=== PATIENT | male | born 1970 | race Caucasian/White ===

== ENCOUNTER 2018-07-23 10:02 | Emergency (ER) | payer SELFPAY ==
[2018-07-23 10:10] VITALS: BP 142/96; PULSE 70; RESP 16; TEMP 37.7; O2SAT 95
--- NOTE | 2018-07-23 10:21 | ED.GENADUL_ITS ---
Discharge Plan Disposition Patient Disposition: HOME Condition: Improving Discharge Details Chief Complaint: Sorethroat Clinical Impression: Acute pharyngitis, Acute torticollis Primary Care Provider: Veronica Harris ED Provider: Quinn Preston Home Meds and New Rx's Prescriptions: New methocarbamol 500 mg tablet 500 - 1,000 mg PO Q6H PRN (Reason: Back pain or spasm) Qty: 14 RF: 0 amoxicillin-pot clavulanate 875-125 mg tablet 1 tab PO BID 10 Days Qty: 20 RF: 0 Continued levalbuterol tartrate [Xopenex HFA] 15 GM HFA aerosol inhaler Inhalation QID PRN RF: 0 Benefiber Clear SF (dextrin) 1 EACH powder in packet 1 ea PO DAILY RF: 0 dicyclomine 20 MG tablet 20 mg PO 1-2 TABS BID PRN RF: 0 promethazine 25 MG tablet 25 mg PO QID RF: 0 sertraline 25 MG tablet 25 mg PO DAILY RF: 0 Discharge Instructions Instructions: Spasmodic Torticollis (ED) Additional Instructions: Please take antibiotic as prescribed. As discussed I recommend you take an [id number] probiotic or local live culture yogurt once daily in the middle of the day, between the doses of antibiotics. May use methocarbamol, as prescribed for muscular tenderness. May use warm, moist heat to area to reduce discomfort. May apply gentle stretching or massage as well. Return if you develop shaking chills, worsening discomfort, high fever, or any other acute concerns. Please follow-up with Leah Vega in clinic if not improving in 3-5 days time Medical Decision Making 47-year-old male presents on referral from primary care clinic with 4-5 days of worsening left-sided throat discomfort. He is afebrile, well-appearing, with tender left anterior submandibular lymph nodes and left anterior neck musculature. Differential diagnosis includes deep space abscess, peritonsillar abscess, pharyngitis, muscular torticollis. Patient IV access established, given steroids, anti-inflammatory, referred for laboratory testing and CT images that are negative for acute inflammatory process or other findings. It will treat him for pharyngitis. Will add methocarbamol for mild torticollis. Discussed with him home management as well as follow-up and return precautions. Lab Data Lab results reviewed: Yes I reviewed the patient's lab results. Laboratory Results - last 24 hr 07/23/18 07/23/18 10:50 10:50 WBC 6.98 RBC 5.73 Hgb 16.7 Hct 49.1 MCV 85.7 MCH 29.1 MCHC 34.0 RDW 13.7 Plt Count 199 MPV 11.6 H Immature Gran % 0.3 Neutrophils % 59.3 Lymphocytes % 30.1 Monocytes % 8.0 Eosinophils % 2.3 Basophils % 0.0 Absolute Neutrophils 4.14 Absolute Lymphocytes 2.10 Absolute Monocytes 0.56 Absolute Eosinophils 0.16 Absolute Basophils 0.00 Sodium 138 Potassium 4.1 Chloride 101 Carbon Dioxide 26.5 Anion Gap 10.5 BUN 13 Creatinine 0.97 Estimated GFR/1.73 m2 >= 60.00 Glucose 90 Calcium 9.9 AST 11 L Albumin 4.8 HPI General Mode of arrival: ambulatory . Date/Time Provider Initiated Documentation: 07/23/18 10:04 . Limitations to Documentation: no limitations . Information obtained by: patient . History of Present Illness 47 year old M presents to the emergency department with the chief complaint of Sore throat times 4-5 days, left, worse today, described as moderate, Quality is described as aching, and is localized to the mouth and left. Patient neck. Patient started experiencing this day(s) and it has been constant. No relieving factors improve symptom(s), Eating worsens symptoms . Patient notes no other symptoms.. Patient did receive the following treatments prior to arrival, none Related Data Home Medications Medication Instructions Recorded Confirmed sertraline 25 mg PO DAILY 01/11/13 07/23/18 Benefiber Clear SF (dextrin) 1 ea PO DAILY 08/13/14 07/23/18 dicyclomine 20 mg PO 1-2 TABS BID PRN tab-cap 08/13/14 07/23/18 levalbuterol tartrate [Xopenex HFA] 0 inh INHALATION QID PRN inhaler 08/13/14 07/23/18 promethazine 25 mg PO QID tab-cap 09/24/14 07/23/18 amoxicillin-pot clavulanate 1 tab PO BID 10 Days #20 tab 07/23/18 methocarbamol 500 - 1,000 mg PO Q6H PRN #14 tab 07/23/18 Previous Rx's Medication Instructions Recorded amoxicillin-pot clavulanate 1 tab PO BID 10 Days #20 tab 07/23/18 methocarbamol 500 - 1,000 mg PO Q6H PRN #14 tab 07/23/18 Allergies Allergy/AdvReac Type Severity Reaction Status Date / Time aspirin Allergy told when Unverified 07/23/18 10:12 he was a child sulfasalazine AdvReac Intermediate GI UPSET Unverified 07/23/18 10:12 General Stated Complaint: Sorethroat CHELSIE: 3 Review of Systems Review of Systems 6 systems reviewed and otherwise neg PFSH Social History Smoking/Tobacco Use Status: Former Tobacco Use Exam Narrative Exam Narrative: GEN: awake, alert, oriented 3. Pleasant, well groomed, interactive. HEAD: Normocephalic, atraumatic ENT: Mucous membranes moist, oropharynx with erythematous tonsillar pillars, no swelling, uvula midline, External ear exam unremarkable EYES: PERRL, EOMI NECK: Full ROM, tender left anterior submandibular lymphadenopathy and tenderness with mild spasm of the left neck anterior musculature CHEST/RESP: Nontender, clear to auscultation bilateral, no wheeze/rhonchi/rales CARDIOVASCULAR: RRR, no murmur, rub abhijit. 2+ Rad pulse bilateral ABDOMEN: Soft, nontender, no mass. +Bowel sounds EXT: Full ROM, no edema, no rash Neuro: Grossly normal neurologic exam, conversant, interactive. Psych: Speech fluent, thoughts congruent, affect normal Course Vital Signs Temperature 37.7 C H 07/23/18 10:10 Pulse 70 07/23/18 10:10 Respiratory Rate 16 07/23/18 10:10 Blood Pressure 142/96 H 07/23/18 10:10 Pulse Oximetry 95 07/23/18 10:10 Temperature 37.7 C H 07/23/18 10:10 Temperature Source Skin 07/23/18 10:10 Pulse 70 07/23/18 10:10 Respiratory Rate 16 07/23/18 10:10 Respiratory Effort Non-Labored 07/23/18 10:10 Blood Pressure 142/96 H 07/23/18 10:10 Blood Pressure Position Sitting 07/23/18 10:10 Pulse Oximetry 95 07/23/18 10:10 Oxygen Delivery Method Room Air 07/23/18 10:10 Oxygen Flow Rate 0 07/23/18 10:10 Pain Level 5 07/23/18 10:10
[2018-07-23] MEDS: Lactated Ringers 1,000 ML 1000 ML IV (10:50)
[2018-07-23] MEDS: Dexamethasone 10 MG/ML VIAL IVP (10:50)
[2018-07-23] MEDS: Ketorolac 15 MG/ML VIAL IVP (10:55)
[2018-07-23 11:06] LABS: Abs Immature Grans 0.02 k/cumm (0.0-0.09); Absolute Eosinophil Count 0.16 k/cumm (0.0-0.7); Absolute Monocyte Count 0.56 k/cumm (0.11-0.7); Absolute Neutrophil Count 4.14 k/cumm (1.2-6.7); Eosinophils % 2.3; HCT 49.1 % (40.0-50.0); HGB 16.7 g/dL (13.5-17.5); Immature Grans % 0.3; Lymphocytes % 30.1; Mean Corpuscular Hemoglobin 29.1 pg (27.0-33.0); Mean Corpuscular Volume 85.7 fL (80-95); Mean Platelet Volume 11.6 fL (8.0-11.0); Neutrophils % 59.3; Platelet Count 199 x1000/uL (130-400); RBC 5.73 m/cumm (4.50-6.00); RBC Distribution Width 13.7 % (11.8-14.1); White Blood Cell Count 6.98 k/cumm (4.4-10.8)
[2018-07-23 11:25] LABS: AST 11 U/L (15-37); Albumin 4.8 g/dL (3.4-5.0); Anion Gap 10.5 mmol/L (3-11); BUN 13 mg/dL (7-18); CO2 26.5 mmol/L (21.0-32.0); CREATININE 0.97 mg/dL (0.70-1.30); Calcium 9.9 mg/dL (8.5-10.1); Chloride 101 mmol/L (98-107); Glucose 90 mg/dL (70-100); Potassium 4.1 mmol/L (3.5-5.1); Sodium 138 mmol/L (136-145)
[2018-07-23 11:42] LABS: ALT 32 U/L (12-78); Alkaline Phosphatase 85 U/L (46-116); Bilirubin, Total 0.4 mg/dL (0.2-1.0); Total Protein 9.2 g/dL (6.4-8.2)
--- NOTE | 2018-07-23 11:54 | DI.CT_ITS ---
SYMPTOMS/DIAGNOSIS: LEFT SUBMANDIBULAR/RETROPHARYNGEAL SWELLING/PAIN CT SCAN OF THE NECK: CT scan of the neck was performed following the uneventful administration of intravenous contrast material. There is mild mucosal thickening seen in the ethmoid air cells. The remaining visualized paranasal sinuses are clear. No fluid levels are seen. The parotid and submandibular glands are unremarkable. The nasopharynx, oropharynx, hypopharynx and larynx are unremarkable. The retropharyngeal soft tissues are unremarkable. The thyroid gland is unremarkable. The lung apices are clear. There is no significant cervical adenopathy. There is a unilocular cystic lesion seen adjacent to the right posterior molar in the right mandible; this may reflect an odontogenic cyst. Other benign osseous lesions should also be considered. No periosteal reaction or soft tissue mass is associated with this. The bones are intact and normally mineralized. There are mild degenerative changes seen in the cervical spine at C5-C6. IMPRESSION: No acute abnormality. The findings were discussed with the Emergency Department on the date of the examination.
[2018-07-23] MEDS: Omnipaque 350 MG/ML 100 ML BTL IJ (12:48)
[2018-07-23 13:39] VITALS: BP 142/96; PULSE 70; RESP 16; TEMP 37.7; O2SAT 95
== END 2018-07-23 13:38 | disposition home or self-care (01) ==
PROVIDERS: Emergency Provider Emergency Medicine; PCP Family Medicine
DX: J02.9 Acute pharyngitis, unspecified (principal); M43.6 Torticollis
CPT/HCPCS: 36415; 70491; 80053; 87880; 96361; 96375; 99285; 85025; 87081; 99283; J1100; J1885; J3490

== ENCOUNTER 2020-02-16 13:35 | Outpatient (REF) | payer SELFPAY ==
[2020-02-16 18:37] LABS: HCT 43.5 % (40.0-50.0); HGB 14.2 g/dL (13.5-17.5); MCH 28.7 pg (27.0-33.0); MCHC 32.6 % (32.0-36.0); MCV 88.1 fL (80-95); MPV 12.6 fL (8.0-11.0); Platelet Count 183 10^3/uL (130-400); RBC 4.94 10^6/uL (4.36-5.78); RDW 12.8 % (11.8-14.1); RDW-SD 41.1 fL; WBC 6.43 10^3/uL (4.4-10.8)
[2020-02-16 18:55] LABS: ALT 29 U/L (16-63); AST 14 U/L (15-37); Albumin 4.2 g/dL (3.4-5.0); Alkaline Phosphatase 77 U/L (46-116); Anion Gap 7.6 mmol/L (3-11); BUN 12 mg/dL (7-18); Bilirubin, Total 0.2 mg/dL (0.2-1.0); CO2 28.4 mmol/L (21.0-32.0); CREATININE 0.88 mg/dL (0.70-1.30); Calcium 9.2 mg/dL (8.5-10.1); Chloride 103 mmol/L (98-107); Glucose 94 mg/dL (74-106); Potassium 4.1 mmol/L (3.5-5.1); Sodium 139 mmol/L (136-145); TSH (W/Ref FT4) 1.98 uIU/mL (0.36-3.74); Total Protein 7.4 g/dL (6.4-8.2)
[2020-02-18 11:17] LABS: IgA 200 mg/dL (85-499)
[2020-02-18 19:27] LABS: Tissue Transglutaminase Ab IgA <1.2 U/mL; Tissue Transglutaminase Ab IgG 1.4 U/mL
[2020-02-19 12:11] LABS: Metanephrine, Free <0.20 nmol/L (<0.50); Normetanephrine, Free 0.57 nmol/L (<0.90)
== END 2020-02-16 13:55 ==
LOC: NCHCN 13:35
PROVIDERS: PCP Family Medicine; Visit Provider Family Medicine
DX: R10.9 Unspecified abdominal pain (principal); R42 Dizziness and giddiness; R23.2 Flushing
CPT/HCPCS: 80053; 82784; 85027; 83516; 83835; 84443

== ENCOUNTER 2020-06-22 15:11 | Emergency (ER) | payer SELFPAY ==
[2020-06-22] VITALS (32 sets, daily range): BP systolic 133–161; BP diastolic 70–102; PULSE 68–91; RESP 10–33; TEMP 36.3–36.6; O2SAT 95–98
--- NOTE | 2020-06-22 15:12 | ED.GENADUL_ITS ---
Discharge Plan Disposition Patient Disposition: HOME Condition: Improving Discharge Details Clinical Impression: Gastroenteritis Primary Care Provider: Veronica Harris ED Provider: Isabel Castillo Home Meds and New Rx's Prescriptions: Continued levalbuterol tartrate [Xopenex HFA] 15 GM HFA aerosol inhaler 0 inh Inhalation QID PRN RF: 0 dicyclomine 20 MG tablet 20 mg PO 1-2 TABS BID PRN RF: 0 promethazine 25 MG tablet 25 mg PO QID RF: 0 sertraline 25 MG tablet 25 mg PO DAILY RF: 0 Discharge Instructions Instructions: Gastroenteritis (ED) Additional Instructions: Your lab work and CAT scan was reassuring and did not reveal any acute cause for your vomiting, diarrhea and abdominal pain at this time. Alternate tylenol and motrin as needed and directed for pain. Continue your Phenergan and dicyclomine as needed and directed. Follow-up with your primary care doctor in 1 week. Return to the emergency department with any worsening or new concerning symptoms. Discharge Data Discharge Date/Time-TO BE ENTERED AT DEPARTURE: 06/22/20 19:55 Discharge Physician: Isabel Castillo Medical Decision Making 1520 -- 49-year-old male with a history of IBS presents for vomiting, diarrhea and abdominal pain for the past week. Vitals within normal limits. He appears slightly uncomfortable. His abdomen is soft and tender diffusely but worse in the lower quadrants. No rebound or guarding. Differential diagnosis includes gastroenteritis, bowel obstruction, cholecystitis, appendicitis, colitis. Will place an IV, bolus IV fluids, screening labs, CT abdomen pelvis and give a dose of IV Tylenol, Toradol and Zofran and reassess. 1615 --labs reviewed and unremarkable. Normal white blood cell count. Normal lipase. 1630 --patient noted to be diaphoretic and feels hot with sweats and some dizziness. He denies chest pain, shortness of breath or worsening pain or nausea. EKG obtained and notes rate of 71, sinus with no STEMI. Troponin negative. No significant change from previous EKG 2006. 1800 --patient reassessed and denies any nausea or pain. Will repeat EKG as he was sweaty and lead stickers were not staying in place. CT notes thickening of urinary bladder but no other acute findings. Patient given 2 full liters and still unable to give a urine sample. Suspect dehydration. He appears much more improved. Urinalysis negative. Patient reassessed any admits to continued improvement in symptoms. 1930 -- Repeat EKG unchanged. Patient feels good to go home. He is advised to continue with Phenergan and dicyclomine. Advised to follow up with the primary care doctor for re-evaluation. Usual and customary return precautions given prior to discharge. Medical Records Medical records reviewed: Yes I reviewed the patient's medical records. Imaging Data Radiologic Study: Radiologist's impression: CT Abdomen And Pelvis With Contrast Exam date and time: 06/22/2020 5:07 PM Age: 49 years old Clinical indication: Other: Lower abd pain, vomiting, diarrhea TECHNIQUE: Imaging protocol: Computed tomography of the abdomen and pelvis with intravenous contrast. Radiation optimization: All CT scans at this facility use at least one of these dose optimization techniques: automated exposure control; mA and/or kV adjustment per patient size (includes targeted exams where dose is matched to clinical indication); or iterative reconstruction. Contrast material: OMNIPAQUE 350; Contrast volume: 100 ml; Contrast route: INTRAVENOUS (IV); Other contrast: lower abd pain, vomiting, diarrhea; COMPARISON: No relevant prior studies available. FINDINGS: Lungs: The visualized lung bases are clear. Liver: Hepatic dome hypodensity measuring 1.1 cm likely represents a hemangioma. Additional smaller segment 8 hypodensity may represent a 0.6 cm hemangioma versus cyst. Gallbladder and bile ducts: Normal. No calcified stones. No ductal dilation. Pancreas: Normal. No ductal dilation. Spleen: Normal. No splenomegaly. Adrenal glands: Normal. No mass. Kidneys and ureters: Normal. No hydronephrosis. Stomach and bowel: A few scattered sigmoid diverticula but no evidence for acute diverticulitis. No bowel obstruction. No mucosal enhancement. No small or large bowel wall thickening. Appendix: Normal appendix. No evidence for appendicitis. Intraperitoneal space: Unremarkable. No free air. No significant fluid collection. Vasculature: Unremarkable. No abdominal aortic aneurysm. Lymph nodes: Unremarkable. No enlarged lymph nodes. Urinary bladder: Mild thickening of the urinary bladder wall. Reproductive: Unremarkable as visualized. Bones/joints: Unremarkable. No acute fracture. Soft tissues: Unremarkable. IMPRESSION: 1. Mild thickening of the urinary bladder wall. Correlate with urinalysis. 2. Benign hypodensities at the hepatic dome representing a small hemangioma with a 2nd smaller hemangioma versus cyst. 3. No other acute intra-abdominal or pelvic finding. Lab Data Lab results reviewed: Yes I reviewed the patient's lab results. Labs: Laboratory Tests Range/Units 06/22/20 06/22/20 06/22/20 15:32 15:32 15:32 WBC (4.4-10.8) 10^3/uL 9.83 RBC (4.36-5.78) 10^6/uL 5.90 H Hgb (13.5-17.5) g/dL 16.9 Hct (40.0-50.0) % 49.7 MCV (80-95) fL 84.2 MCH (27.0-33.0) pg 28.6 MCHC (32.0-36.0) % 34.0 RDW (11.8-14.1) % 12.3 Plt Count (130-400) 10^3/uL 241 MPV (8.0-11.0) fL 11.5 H Immature Gran % 0.4 Neutrophils % 60.3 Lymphocytes % 26.7 Monocytes % 9.9 Eosinophils % 2.5 Basophils % 0.2 Nucleated RBC % % 0 Absolute Neutrophils (1.2-6.7) 10^3/uL 5.93 Absolute Lymphocytes (1.2-3.4) 10^3/uL 2.62 Absolute Monocytes (0.1-0.8) 10^3/uL 0.97 H Absolute Eosinophils (0.0-0.7) 10^3/uL 0.25 Absolute Basophils (0.0-0.2) 10^3/uL 0.02 Sodium (136-145) mmol/L 134 L Potassium (3.5-5.1) mmol/L 3.8 Chloride (98-107) mmol/L 100 Carbon Dioxide (21.0-32.0) mmol/L 25.5 Anion Gap (3-11) mmol/L 8.5 BUN (7-18) mg/dL 20 H Creatinine (0.70-1.30) mg/dL 0.97 Estimated GFR/1.73 m2 (mL/min/1.73m2) >= 60.00 Glucose (74-106) mg/dL 98 Calcium (8.5-10.1) mg/dL 9.3 Total Bilirubin (0.2-1.0) mg/dL 0.6 AST (15-37) U/L 13 L ALT (16-63) U/L 23 Alkaline Phosphatase (46-116) U/L 84 Troponin I (<0.06) ng/mL < 0.05 Total Protein (6.4-8.2) g/dL 8.2 Albumin (3.4-5.0) g/dL 4.6 Lipase (73-393) U/L 110 Urine Color (Yellow) Urine Clarity (Clear) Urine pH (5-8) Ur Specific Stringer (1.005-1.025) Urine Protein (Negative) mg/dL Urine Ketones (Negative) mg/dL Urine Blood (Negative) Urine Nitrite (Negative) Urine Bilirubin (Negative) Urine Urobilinogen (Up TO 0.2) EU/dL Ur Leukocyte Esterase (Negative) Urine Glucose (Negative) mg/dL Range/Units 06/22/20 18:45 WBC (4.4-10.8) 10^3/uL RBC (4.36-5.78) 10^6/uL Hgb (13.5-17.5) g/dL Hct (40.0-50.0) % MCV (80-95) fL MCH (27.0-33.0) pg MCHC (32.0-36.0) % RDW (11.8-14.1) % Plt Count (130-400) 10^3/uL MPV (8.0-11.0) fL Immature Gran % Neutrophils % Lymphocytes % Monocytes % Eosinophils % Basophils % Nucleated RBC % % Absolute Neutrophils (1.2-6.7) 10^3/uL Absolute Lymphocytes (1.2-3.4) 10^3/uL Absolute Monocytes (0.1-0.8) 10^3/uL Absolute Eosinophils (0.0-0.7) 10^3/uL Absolute Basophils (0.0-0.2) 10^3/uL Sodium (136-145) mmol/L Potassium (3.5-5.1) mmol/L Chloride (98-107) mmol/L Carbon Dioxide (21.0-32.0) mmol/L Anion Gap (3-11) mmol/L BUN (7-18) mg/dL Creatinine (0.70-1.30) mg/dL Estimated GFR/1.73 m2 (mL/min/1.73m2) Glucose (74-106) mg/dL Calcium (8.5-10.1) mg/dL Total Bilirubin (0.2-1.0) mg/dL AST (15-37) U/L ALT (16-63) U/L Alkaline Phosphatase (46-116) U/L Troponin I (<0.06) ng/mL Total Protein (6.4-8.2) g/dL Albumin (3.4-5.0) g/dL Lipase (73-393) U/L Urine Color (Yellow) Yellow Urine Clarity (Clear) Clear Urine pH (5-8) 6.5 Ur Specific Stringer (1.005-1.025) 1.015 Urine Protein (Negative) mg/dL Negative Urine Ketones (Negative) mg/dL Trace H Urine Blood (Negative) Negative Urine Nitrite (Negative) Negative Urine Bilirubin (Negative) Negative Urine Urobilinogen (Up TO 0.2) EU/dL 1.0 H Ur Leukocyte Esterase (Negative) Negative Urine Glucose (Negative) mg/dL Negative ECG Data Attestation: I personally reviewed and interpreted this ECG (s) as follows: Interpretation: #1 -- Rate of 71, sinus, no acute ST elevation or depression. Suspect LVH and benign early repole in anterior lateral leads which is seen in previous EKGs. #2 -- Rate of 71, sinus, no acute ST elevation or depression. No acute change reviewed EKG. AK 206. QRS 85. QTc 470. HPI General Mode of arrival: ambulatory . Date/Time Provider Initiated Documentation: 06/22/20 15:11 . Limitations to Documentation: no limitations . Information obtained by: patient . HPI Narrative: Patient is a 49-year-old male with a history of IBS who presents to the ED with a complaint nausea, vomiting, diarrhea and abdominal pain for the past week. Patient states he has vomited 4- 5 times daily which is mainly been white foam and has had approximately 4-5 episodes of watery brown diarrhea daily for the past week. He states his abdominal pain is constant, sharp with intermittent stabbing pain. He states the pain is occasionally worse with food but otherwise denies any other exacerbating factors. He states he occasionally takes dicyclomine for his IBS and is taken occasionally with temporary relief and then the pain returns. He also admits to significant amount of flatulence which does not significantly reduce his pain. Patient was seen at [facility] today for the symptoms and was referred here for further evaluation due to his severe abdominal pain. Patient has also had decreased appetite of the past week. He denies fever, chest pain, shortness of breath, urinary symptoms, recent travel, recent known sick contacts, recent known exposure to coronavirus or recent antibiotics. Related Data Home Medications Medication Instructions Recorded Confirmed sertraline 25 mg PO DAILY 01/11/13 06/22/20 dicyclomine 20 mg PO 1-2 TABS BID PRN tab-cap 08/13/14 06/22/20 levalbuterol tartrate [Xopenex HFA] 0 inh INHALATION QID PRN inhaler 08/13/14 06/22/20 promethazine 25 mg PO QID tab-cap 09/24/14 06/22/20 Allergies Allergy/AdvReac Type Severity Reaction Status Date / Time aspirin Allergy told when Unverified 06/22/20 15:20 he was a child sulfasalazine AdvReac Intermediate GI UPSET Unverified 06/22/20 15:20 General CHELSIE: 3 Review of Systems All systems reviewed & are unremarkable except as noted in HPI and below Constitutional Constitutional: Reports as per HPI, Denies chills and Denies fever(s) Eyes Eyes: Denies blurry vision ENT Ears, Nose, Mouth, and Throat: Denies dizziness, Denies sore throat and Denies throat swelling Cardiovascular Cardiovascular: Denies chest pain and Denies dyspnea Respiratory Respiratory: Denies cough and Denies dyspnea Gastrointestinal Gastrointestinal: Reports abdominal pain, Reports diarrhea and Reports vomiting Genitourinary Genitourinary: Denies hematuria and Denies dysuria Musculoskeletal Musculoskeletal: Denies back pain and Denies numbness Integumentary/Breasts Skin/Breast: Denies lesions and Denies rash Neurologic Neurologic: Denies dizziness, Denies localized weakness and Denies numbness Allergic/Immunologic Allergic/Immunologic: Denies throat swelling [facility] Medical History (Updated 06/22/20 @ 19:24 by Isabel Castillo DO) Hemorrhoids History of IBS Surgical History (Updated 06/22/20 @ 16:48 by Isabel Castillo DO) No significant past surgical history Social History Smoking/Tobacco Use Status: Former Tobacco Use Smoking risk assessment performed?: Yes Alcohol Intake: former Drug use: Occasionally Substance use type: marijuana Do you feel safe at home: Yes Do you feel safe in your relationship?: Yes Exam Const General: cooperative and no acute distress Orientation: alert, awake and oriented x3 HENMT Head: normal to inspection Face and sinus: normal facial exam Eyes General: appearance normal, both eyes and all related structures EOM: EOM intact bilaterally Neck Neck: normal visual inspection and No submandibular swelling Lymphatic: no lymphadenopathy noted Chest Chest: normal inspection of the chest and no tenderness Resp Effort & Inspection: normal respiratory effort and able to speak in complete sentences Auscultation: clear to auscultation bilaterally Cardio Rate: regular rate Rhythm: regular rhythm GI Inspection: normal to inspection Palpation: soft, not firm, not rigid and tender (Diffuse, worse in lower abdomen) Auscultation: hyperactive bowel sounds Skin General skin exam: no rashes or lesions noted Neuro General: patient alert, patient awake and patient oriented x3 Cognition: normal cognition Speech: speech normal Motor: muscle tone normal throughout Sensory Exam: no sensory deficits noted Extrem General: normal to inspection, full ROM, capillary refill normal, no calf tenderness bilaterally and no edema Psych Appearance: grossly normal Mental Status: mental status grossly normal Speech and Movement: speech and movement normal Affect: normal affect
[2020-06-22 15:38] LABS: Abs Immature Grans 0.04 10^3/uL (0.0-0.06); Absolute Basophil Count 0.02 10^3/uL (0.0-0.2); Absolute Eosinophil Count 0.25 10^3/uL (0.0-0.7); Absolute Lymphocyte Count 2.62 10^3/uL (1.2-3.4); Absolute Monocyte Count 0.97 10^3/uL (0.1-0.8); Absolute Neutrophil Count 5.93 10^3/uL (1.2-6.7); Basophils % 0.2; Eosinophils % 2.5; HCT 49.7 % (40.0-50.0); HGB 16.9 g/dL (13.5-17.5); Immature Grans % 0.4; Lymphocytes % 26.7; MCH 28.6 pg (27.0-33.0); MCV 84.2 fL (80-95); MPV 11.5 fL (8.0-11.0); Monocytes % 9.9; Neutrophils % 60.3; Nucleated RBC 0 %; Platelet Count 241 10^3/uL (130-400); RDW 12.3 % (11.8-14.1); RDW-SD 37.8 fL; WBC 9.83 10^3/uL (4.4-10.8)
--- NOTE | 2020-06-22 15:45 | DI.CT_ITS ---
EXAM: CT ABDOMEN PELVIS W CLINICAL HISTORY: lower abd pain, vomiting, diarrhea. TECHNIQUE: Imaging Protocol: Axial computed tomography images with coronal and sagittal reformatted images were created and reviewed CONTRAST MATERIAL: Intravenous: Omnipaque 100cc Oral: None COMPARISON: No exams were available for comparison FINDINGS: VISUALIZED LUNG BASES: No nodules nor pleural effusions evident. ABDOMEN: There is no ascites. LIVER: In the patent dome there is a well-defined benign-appearing 11 x 11 millimeter hypodensity whi ch is either a cyst or hemangioma. Another slightly smaller cyst 6-7 millimeters cyst is noted highe r up in the dome. No ominous hepatic lesions identified. GALLBLADDER/BILIARY: No obvious gallbladder pathology. CBD is not dilated. PANCREAS: No evidence of pancreatic mass nor dilatation of the pancreatic duct. SPLEEN: Spleen is not enlarged. No obvious intrasplenic lesions. Splenic and portal veins are paten t. ADRENALS: There are no significant adrenal masses. KIDNEYS: No calculi nor hydronephrosis. No solid renal masses. No cysts evident. ABDOMINAL AORTA: Abdominal aorta is atherosclerotic upper normal diameter. No significant dilatation of the common iliac arteries. ABDOMINAL WALL/GI: No evidence of significant anterior abdominal wall hernia. No bowel obstruction. PELVIS: GI: No evidence of appendicitis.There is sigmoid diverticuli but no evidence of obvious acute diverti culitis. LYMPH NODES: There is no intrapelvic nor inguinal adenopathy. REPRODUCTIVE: Prostate gland is not enlarged. Seminal vesicles unremarkable. URINARY BLADDER: No calculi nor obvious masses evident OSSEOUS: No significant osseous lesions. IMPRESSION: 1. Two benign-appearing hypodensities in the [place] dome either represent hemangiomas or cysts. Ayde btful for ominous lesions. 2. No other significant findings in the abdomen and pelvis. No ascites. 3. Visualized lung bases are clear. 4. RADIATION DOSE DELIVERED: 717.03mGy.cm Total DLP DATA REPOSITORY: All CT scans at this facility are submitted to the National Radiology Data Registry (NRDR) Dose Index Registry (DIR) with the [employer] ([employer]). RADIATION OPTIMIZATION: All CT scans at this facility use at least one of these dose optimization te chniques: automated exposure control; mA and/or kV adjustment per patient size (includes targeted exa ms where dose is matched to clinical indication); or iterative reconstruction.
[2020-06-22 15:54] LABS: ALT 23 U/L (16-63); AST 13 U/L (15-37); Albumin 4.6 g/dL (3.4-5.0); Alkaline Phosphatase 84 U/L (46-116); Anion Gap 8.5 mmol/L (3-11); BUN 20 mg/dL (7-18); Bilirubin, Total 0.6 mg/dL (0.2-1.0); CO2 25.5 mmol/L (21.0-32.0); CREATININE 0.97 mg/dL (0.70-1.30); Calcium 9.3 mg/dL (8.5-10.1); Chloride 100 mmol/L (98-107); Glucose 98 mg/dL (74-106); Lipase 110 U/L (73-393); Potassium 3.8 mmol/L (3.5-5.1); Sodium 134 mmol/L (136-145); Total Protein 8.2 g/dL (6.4-8.2)
[2020-06-22] MEDS: Normal Saline 1,000 ML 1000 ML IV ×2 (16:12→17:33)
[2020-06-22] MEDS: Ketorolac 30 MG/ML VIAL IVP (16:13)
[2020-06-22] MEDS: Ondansetron 4 MG/2 ML VIAL IVP (16:13)
[2020-06-22] MEDS: ACETAMINOPHEN 1,000 MG/100 ML BTL 400 MG IVPB (16:13)
--- NOTE | 2020-06-22 16:30 | RT.EKG_ITS ---
APPROVED REPORT Exam: Resting ECG Patient Location: E HR:71 bpm ECG Measurements Heart Rate 71 AXIS WV 206 P 76 QRSd 85 QRS 55 QT 433 T -12 QTc 470 Conclusion Sinus rhythm...normal P axis, V-rate 60- 99 Borderline prolonged WV interval...WV >202, V-rate 50- 90 ST elev, probable normal early repol pattern...ST elevation, age<55 I have reviewed and interpreted ECG and agree with software generated interpretation.
--- NOTE | 2020-06-22 16:56 | NUR.NOTE ---
1630: Appeared in distress, noted to be Profusely sweating with beads of sweat on face and chest complaining of feeling very hot and faint. Denied nausea, denied pain. IV Acetaminophen 1000mg and IV NS 1 liter bag had just completed infusing. Temp checked 36 degrees via skin on forehead and 36.6 orally all other vitals signs assessed and noted to be stable ( see captured vitals) Dr Castillo came in to evaluate pt's condition at this time and an EKG was done. Will continue to monitor. 1650: Pt reporting he is now chilled and blanket given as requested. Temp rechecked and 36 degrees via forehead skin at this time.
[2020-06-22] MEDS: Normal Saline Flush 10 ML SYR IVP (17:09)
[2020-06-22] MEDS: Omnipaque 350 MG/ML 100 ML BTL IV (17:09)
[2020-06-22] MEDS: Normal Saline - Diluent 50 ML VIAL IV (17:09)
--- NOTE | 2020-06-22 17:10 | NUR.NOTE ---
1710: Pt at diagnostic imaging for CT scan of abdomen and pelvis.
--- NOTE | 2020-06-22 17:30 | DI.VRAD_ITS ---
PROCEDURE INFORMATION: Exam: CT Abdomen And Pelvis With Contrast Exam date and time: 06/22/2020 5:07 PM Age: 49 years old Clinical indication: Other: Lower abd pain, vomiting, diarrhea TECHNIQUE: Imaging protocol: Computed tomography of the abdomen and pelvis with intravenous contrast. Radiation optimization: All CT scans at this facility use at least one of these dose optimization techniques: automated exposure control; mA and/or kV adjustment per patient size (includes targeted exams where dose is matched to clinical indication); or iterative reconstruction. Contrast material: OMNIPAQUE 350; Contrast volume: 100 ml; Contrast route: INTRAVENOUS (IV); Other contrast: lower abd pain, vomiting, diarrhea; COMPARISON: No relevant prior studies available. FINDINGS: Lungs: The visualized lung bases are clear. Liver: Hepatic dome hypodensity measuring 1.1 cm likely represents a hemangioma. Additional smaller segment 8 hypodensity may represent a 0.6 cm hemangioma versus cyst. Gallbladder and bile ducts: Normal. No calcified stones. No ductal dilation. Pancreas: Normal. No ductal dilation. Spleen: Normal. No splenomegaly. Adrenal glands: Normal. No mass. Kidneys and ureters: Normal. No hydronephrosis. Stomach and bowel: A few scattered sigmoid diverticula but no evidence for acute diverticulitis. No bowel obstruction. No mucosal enhancement. No small or large bowel wall thickening. Appendix: Normal appendix. No evidence for appendicitis. Intraperitoneal space: Unremarkable. No free air. No significant fluid collection. Vasculature: Unremarkable. No abdominal aortic aneurysm. Lymph nodes: Unremarkable. No enlarged lymph nodes. Urinary bladder: Mild thickening of the urinary bladder wall. Reproductive: Unremarkable as visualized. Bones/joints: Unremarkable. No acute fracture. Soft tissues: Unremarkable. IMPRESSION: 1. Mild thickening of the urinary bladder wall. Correlate with urinalysis. 2. Benign hypodensities at the hepatic dome representing a small hemangioma with a 2nd smaller hemangioma versus cyst. 3. No other acute intra-abdominal or pelvic finding. Dictated and Authenticated by: Freddy Mcdaniel MD. Ordering:JAYNE Hall MD
[2020-06-22 17:40] LABS: Troponin I < 0.05 ng/mL (<0.06)
--- NOTE | 2020-06-22 18:00 | RT.EKG_ITS ---
APPROVED REPORT Exam: Resting ECG Patient Location: E HR:66 bpm ECG Measurements Heart Rate 66 AXIS WV 211 P 53 QRSd 82 QRS 58 QT 431 T 23 QTc 451 Conclusion Sinus rhythm...normal P axis, V-rate 60- 99 Prolonged WV interval...WV >210, V-rate 50- 90 ST elev, probable normal early repol pattern...ST elevation, age<54 I have reviewed and interpreted ECG and agree with software generated interpretation. NO STEMI. No change from previous 2006 or today.
[2020-06-22 18:53] LABS: Bilirubin Negative (Negative); Blood Negative (Negative); Clarity Clear (Clear); Glucose Negative (Negative); Ketones Trace mg/dL (Negative); Leukocyte Esterase Negative (Negative); Nitrite Negative (Negative); Specific Gravity 1.015 (1.005-1.025); pH 6.5 (5-8)
== END 2020-06-22 19:55 | disposition home or self-care (01) ==
PROVIDERS: Emergency Provider Physician Assistant; PCP Family Medicine
DX: K52.9 Noninfective gastroenteritis and colitis, unspecified (principal); E86.0 Dehydration; K58.9 Irritable bowel syndrome, unspecified
CPT/HCPCS: 36415; 80053; 83690; 93005; 96361; 96365; 96375; 99285; 74177; 81003; 84484; 85025; 93010; J0131; J1885; J2405; J3490

== ENCOUNTER 2022-01-30 18:11 | Outpatient (REF) | payer MEDICAID, SELFPAY ==
[2022-01-30 14:59] LABS: Calculated LDL 134 mg/dL (<100); Cholesterol 196 mg/dL (<200); HDL Cholesterol 53 mg/dL (40-60); Triglyceride 47 mg/dL (<150)
[2022-01-31 09:51] LABS: HIV-1/2 Ag & Ab Screen Negative (Negative)
[2022-01-31 09:56] LABS: Hepatitis C Ab w Rflx HCV PCR Negative (Negative)
== END 2022-01-30 18:12 | disposition home or self-care (01) ==
LOC: NCHCN 18:11
PROVIDERS: PCP Family Medicine; Visit Provider Family Medicine
DX: Z13.220 Encounter for screening for lipoid disorders (principal); Z11.4 Encounter for screening for human immunodeficiency virus [HIV]; Z11.59 Encounter for screening for other viral diseases
CPT/HCPCS: 80061; 86803; 87389

== ENCOUNTER → 2022-02-06 01:52 | Outpatient (CLI) | payer MEDICAID, SELFPAY ==
--- NOTE | 2022-02-06 09:59 | DI.CTLCSR_ITS ---
Exam(s) CT CHEST LUNG CANCER SCREEN EXAM: CT CHEST LUNG CANCER SCREEN CLINICAL HISTORY: FORMER SMOKER Z87.891 SCREENING FOR LUNG CANCER. TECHNIQUE: Imaging Protocol: Low Dose Technique CONTRAST MATERIAL: None COMPARISON: No exams were available for comparison FINDINGS: CHEST: LUNGS: There are no ominous pulmonary nodules. There are no confluent infiltrates. No pleural effusi ons. MEDIASTINUM: There is no obvious hilar nor mediastinal adenopathy. CARDIAC: Heart size is normal. There is no pericardial effusion.Caliber of the thoracic aorta is wit hin normal limits. OTHER: OSSEOUS: No significant osseous lesions.. IMPRESSION: 1. No concerning pulmonary nodules. No infiltrates. No pleural effusions. 2. No obvious intrathoracic adenopathy 3. Lung RADS Cat 1 - Negative: No nodules and definitely benign nodules Lung-RADS 1.0 CATEGORIES: Category 0 - Prior chest CT exam(s) being located for comparison. Category 1 - Annual screening in 12 months. No nodules or definitely benign nodules. Category 2 - Annual screening in 12 months. Benign appearance. Nodules with low likelihood of becomin g active cancer. Category 3 - 6-month follow-up. Probably benign. Short-term follow-up suggested. Nodules with low lik elihood of becoming active cancer. Category 4A - 3-month follow-up and CT/PET if >8 mm in size. Suspicious finding. Findings which requi re additional testing. Category 4B - Findings which require additional testing and tissue sampling. Category 4X - Category 3 or 4 nodules with additional features or imaging findings that increases the suspicion of malignancy. Modifier S- Potentially clinically significant findings (non lung cancer) RADIATION DOSE DELIVERED: 80.65mGy.cm Total DLP 1.84mGy CTDIvol DATA REPOSITORY: All CT scans at this facility are submitted to the National Radiology Data Registry (NRDR) Dose Index Registry (DIR) with the [employer] (ACR). RADIATION OPTIMIZATION: All CT scans at this facility use at least one of these dose optimization te chniques: automated exposure control; mA and/or kV adjustment per patient size (includes targeted exa ms where dose is matched to clinical indication); or iterative reconstruction.
== END ==
PROVIDERS: PCP Family Medicine; Visit Provider Family Medicine
DX: Z12.5 Encounter for screening for malignant neoplasm of prostate (principal); Z87.891 Personal history of nicotine dependence
CPT/HCPCS: 71271

== ENCOUNTER 2022-06-11 17:48 | Emergency (ER) | payer MEDICAID, SELFPAY ==
[2022-06-11] VITALS (37 sets, daily range): BP systolic 129–171; BP diastolic 81–138; PULSE 67–102; RESP 12–27; TEMP 36.8; O2SAT 92–100
--- NOTE | 2022-06-11 18:21 | DI.CT_ITS ---
Exam(s) CT ABDOMEN PELVIS W EXAM: CT ABDOMEN PELVIS W CLINICAL HISTORY: Mid abdominal pain. TECHNIQUE: Imaging Protocol: Axial computed tomography images with coronal and sagittal reformatted images were created and reviewed CONTRAST MATERIAL: Intravenous: Omnipaque 350 Contrast volume:100 ml Oral: no COMPARISON: CT CT ABDOMEN PELVIS W from 06/22/2020 FINDINGS: ABDOMEN: Lung Bases: Normal where visualized. Liver: Normal density. Stable low-density lesion near hepatic dome consistent with a hemangioma. Gallbladder and biliary tract: Question of mild focal wall thickening near the fundus of the gallblad alejandro, unchanged from prior. This could represent focal adenomyomatosis. No radiodense calculus or di lation. Pancreas: Normal density, no abnormal calcifications or inflammatory process. Spleen: Normal. Kidneys: Normal size, contour and axis. No radiodense stones or obstructive uropathy. No masses seen. Tiny right renal cyst. Adrenal glands: No masses seen. Abdominal Aorta: Abdominal portion non-dilated. Lzsd-ze-rktijyyl atherosclerotic changes. PELVIS: Bladder: Nenx-pr-sfjhfovn diffuse wall thickening, similar to prior.. No calculi.No focal mass. Bowel: Mild diverticulosis sigmoid region. No evidence of diverticulitis. No obstruction or bowel w all thickening. Appendix normal. Peritoneal cavity: No ascites, collection or mesenteric inflammatory response. Bones: Within normal limits for age. Reproductive organs: Within normal limits. Lymph nodes: Unremarkable. Impression: Mild to moderate diffuse wall thickening of the urinary bladder could indicate cystitis. Clinical co rrelation recommended. RADIATION DOSE DELIVERED: 780.92mGy.cm Total DLP DATA REPOSITORY: All CT scans at this facility are submitted to the National Radiology Data Registry (NRDR) Dose Index Registry (DIR) with the [employer] (ACR). RADIATION OPTIMIZATION: All CT scans at this facility use at least one of these dose optimization te chniques: automated exposure control; mA and/or kV adjustment per patient size (includes targeted exa ms where dose is matched to clinical indication); or iterative reconstruction.
--- NOTE | 2022-06-11 18:22 | ED.GENADUL_ITS ---
Discharge Plan Disposition Patient Disposition: Home Condition: Improving Discharge Details Chief Complaint: Abd Prob Clinical Impression: Nausea & vomiting Primary Care Provider: Veronica Harris ED Provider: Raman Waterman Home Meds and New Rx's Prescriptions: No Action levalbuterol tartrate [Xopenex HFA] 15 GM HFA aerosol inhaler 0 inh Inhalation QID PRN dicyclomine 20 MG tablet 20 mg PO 1-2 TABS BID PRN promethazine 25 MG tablet 25 mg PO QID sertraline 25 MG tablet 25 mg PO DAILY Discharge Instructions Instructions: Acute Nausea and Vomiting (ED) Additional Instructions: Please follow-up with your primary care physician please return to the emergency department for any worsening symptoms Medical Decision Making <Quinn Preston MD - Last Filed: 06/11/22 19:43> 51-year-old male presents from home with complaint of day 5 of lower abdominal pain, nausea, poor p.o. tolerance. He states he has a history of IBS but does not take chronic medications for this and no ongoing GI follow-up. He arrives to the ER tachycardic and in some distress. His exam reveals lower abdominal tenderness. Differential diagnosis includes gastroenteritis, diverticulitis, dehydration, electrolyte abnormality. Patient IV access established, parenteral fluids and antiemetics & analgesics administered. He is referred for laboratory testing and CT images. Laboratories will note white blood cell count of 10.9, hematocrit 51, platelets 270. Venous lactate elevated at 1.8. Sodium 134, potassium 3.3, chloride 96, bicarb 21, BUN 22, creatinine 1.2. Total bili elevated at 1.2, AST 12, ALT 18. Troponin negative. Will sign the patient out to Dr. Waterman pending review of patient's response to fluids, medications, and diagnostic imaging study. Please see his note regarding final impression and disposition Lab Data Lab results reviewed: Yes I reviewed the patient's lab results. Labs: Laboratory Results - last 24 hr 06/11/22 06/11/22 06/11/22 18:18 18:18 19:14 WBC 10.96 H RBC 6.26 H Hgb 17.6 H Hct 51.2 H MCV 82 MCH 28.1 MCHC 34.4 RDW 12.2 Plt Count 270 MPV 12.6 H Immature Gran % 0.4 Neutrophils % 51.2 Lymphocytes % 34.0 Monocytes % 11.7 Eosinophils % 2.4 Basophils % 0.3 Nucleated RBC % 0.0 Absolute Neutrophils 5.61 Absolute Lymphocytes 3.73 H Absolute Monocytes 1.28 H Absolute Eosinophils 0.26 Absolute Basophils 0.03 VBG Lactate 1.8 H Sodium 134 L Potassium 3.3 L Chloride 96 L Carbon Dioxide 21.4 Anion Gap 16.6 H BUN 22 H Creatinine 1.2 Est GFR (CKD-EPI 2020) 72.76 Glucose 128 H Calcium 10.0 Magnesium 2.0 Total Bilirubin 1.2 H AST 12 L ALT 18 Alkaline Phosphatase 94 Troponin I < 50 Total Protein 8.7 H Albumin 4.8 Lipase 263 Sign Out Yes <Raman Waterman MD - Last Filed: 06/12/22 05:49> 51-year-old male presents from home with complaint of day 5 of lower abdominal pain, nausea, poor p.o. tolerance. He states he has a history of IBS but does not take chronic medications for this and no ongoing GI follow-up. He arrives to the ER tachycardic and in some distress. His exam reveals lower abdominal tenderness. Differential diagnosis includes gastroenteritis, diverticulitis, dehydration, electrolyte abnormality. Patient IV access established, parenteral fluids and antiemetics & analgesics administered. He is referred for laboratory testing and CT images. Laboratories will note white blood cell count of 10.9, hematocrit 51, platelets 270. Venous lactate elevated at 1.8. Sodium 134, potassium 3.3, chloride 96, bicarb 21, BUN 22, creatinine 1.2. Total bili elevated at 1.2, AST 12, ALT 18. Troponin negative. Will sign the patient out to Dr. Waterman pending review of patient's response to fluids, medications, and diagnostic imaging study. Please see his note regarding final impression and disposition 06/12 5: 48 patient resting comfortably no acute distress. No further vomiting. Ambulatory. Feeling well would like to go home. HPI <Quinn Preston MD - Last Filed: 06/11/22 19:43> General Mode of arrival: ambulatory . Date/Time Provider Initiated Documentation: 06/11/22 17:49 . Limitations to Documentation: no limitations . Information obtained by: patient . History of Present Illness 51 year old M presents to the emergency department with the chief complaint of Mid abdominal to lower abdominal pain and nausea, 5days, described as moderate, Quality is described as dull and constant, and is localized to the abdomen. Patient reports no radiation. Patient started experiencing this day(s) and it has been constant. No relieving factors improve symptom(s), Eating worsens symptoms . Patient notes loss of appetite, nausea/vomiting and other (Loose stool, passing gas); denies headaches. Patient did receive the following treatments prior to arrival, none Related Data Home Medications Medication Instructions Recorded Confirmed sertraline 25 mg tablet 25 mg PO DAILY 01/11/13 06/11/22 dicyclomine 20 mg tablet 20 mg PO 1-2 TABS BID PRN 08/13/14 06/11/22 levalbuterol tartrate 45 0 inh inhalation QID PRN 08/13/14 06/11/22 mcg/actuation aerosol inhaler (Xopenex HFA) promethazine 25 mg tablet 25 mg PO QID 09/24/14 06/11/22 Allergies Allergy/AdvReac Type Severity Reaction Status Date / Time aspirin Allergy told when Unverified 06/11/22 18:16 he was a child sulfasalazine AdvReac Intermediate GI UPSET Unverified 06/11/22 18:16 General Stated Complaint: Abd Prob CHELSIE: 3 Review of Systems <Quinn Preston MD - Last Filed: 06/11/22 19:43> Narrative: 6 systems reviewed and otherwise negative PFSH <Quinn Preston MD - Last Filed: 06/11/22 19:43> All Active Problems (Updated 06/12/22 @ 05:49 by Raman Waterman MD) Nausea & vomiting (Acute) Medical History Hemorrhoids History of IBS Surgical History No significant past surgical history Social History Smoking/Tobacco Use Status: Former Tobacco Use Smoking risk assessment performed?: Yes Alcohol Intake: former Drug use: Occasionally Substance use type: marijuana Do you feel safe at home: Yes Do you feel safe in your relationship?: Yes Exam <Quinn Preston MD - Last Filed: 06/11/22 19:43> Narrative Exam Narrative: GEN: awake, alert, interactive. HEAD: Normocephalic, atraumatic ENT: Mucous membranes dry, oropharynx unremarkable, External ear exam unremarkable EYES: PERRL, EOMI NECK: Full ROM, no ANANYA, no menigismus CHEST/RESP: Nontender, clear to auscultation bilateral, no wheeze/rhonchi/rales CARDIOVASCULAR: Regular and tachycardic, no murmur, rub abhijit. 2+ Rad pulse bilateral ABDOMEN: Soft, lower abdominal tenderness without significant rebound present, no mass. +Bowel sounds EXT: Full ROM, no edema, no rash Neuro: Grossly normal neurologic exam, conversant, interactive. Psych: Speech fluent, thoughts congruent, affect normal Course <Quinn Preston MD - Last Filed: 06/11/22 19:43> Vital Signs Vital signs: Vital Signs Temperature 36.8 C 06/11/22 18:06 Pulse 102 H 06/11/22 18:06 Respiratory Rate 20 06/11/22 18:06 Blood Pressure 171/138 H 06/11/22 18:06 Pulse Oximetry 97 06/11/22 18:06 Temperature 36.8 C 06/11/22 18:06 Pulse 102 H 06/11/22 18:06 Respiratory Rate 20 06/11/22 18:06 Blood Pressure 171/138 H 06/11/22 18:06 Blood Pressure Position Sitting 06/11/22 18:06 Pulse Oximetry 97 06/11/22 18:06 Oxygen Delivery Method Room Air 06/11/22 18:06 Oxygen Flow Rate 0 06/11/22 18:06 Sign Out <Quinn Preston MD - Last Filed: 06/11/22 19:43> Sign Out Data: Sign Out Comment: FOllowup labs/CT Last updated by Quinn Presotn MD at 06/11/22 19:34
[2022-06-11] MEDS: Normal Saline 1,000 ML 2000 ML IV (18:30)
[2022-06-11] MEDS: HYDROmorphone 2 MG/ML SYR 1 MG IVP (18:36)
[2022-06-11] MEDS: Ondansetron 4 MG/2 ML VIAL IVP (18:36)
[2022-06-11 19:13] LABS: Abs Immature Grans 0.04 10^3/uL (0.0-0.06); Absolute Basophil Count 0.03 10^3/uL (0.0-0.2); Absolute Eosinophil Count 0.26 10^3/uL (0.0-0.7); Absolute Lymphocyte Count 3.73 10^3/uL (1.2-3.4); Absolute Monocyte Count 1.28 10^3/uL (0.1-0.8); Basophils % 0.3; Eosinophils % 2.4; HCT 51.2 % (40.0-50.0); HGB 17.6 g/dL (13.5-17.5); Immature Grans % 0.4; MCH 28.1 pg (27.0-33.0); MCHC 34.4 % (32.0-36.0); MCV 82 fL (80-95); MPV 12.6 fL (8.0-11.0); Monocytes % 11.7; Neutrophils % 51.2; Platelet Count 270 10^3/uL (130-400); RBC 6.26 10^6/uL (4.36-5.78); RDW 12.2 % (11.8-14.1); RDW-SD 36.7 fL; WBC 10.96 10^3/uL (4.4-10.8)
[2022-06-11 19:17] LABS: Lactate 1.8 mmol/L (0.6-1.4)
[2022-06-11 19:18] LABS: Absolute Neutrophil Count 5.61 10^3/uL (1.2-6.7)
[2022-06-11 19:33] LABS: ALT 18 U/L (16-63); AST 12 U/L (15-37); Albumin 4.8 g/dL (3.4-5.0); Alkaline Phosphatase 94 U/L (46-116); Anion Gap 16.6 mmol/L (3-11); BUN 22 mg/dL (7-18); Bilirubin, Total 1.2 mg/dL (0.2-1.0); CO2 21.4 mmol/L (21.0-32.0); CREATININE 1.2 mg/dL (0.70-1.30); Chloride 96 mmol/L (98-107); Estimated GFR 72.76 (mL/min/1.73m2); Glucose 128 mg/dL (74-106); Lipase 263 U/L (73-393); Potassium 3.3 mmol/L (3.5-5.1); Sodium 134 mmol/L (136-145); Total Protein 8.7 g/dL (6.4-8.2); Troponin I < 50 ng/L (<or=60)
[2022-06-11] MEDS: Normal Saline Flush 10 ML SYR IVP (19:45)
[2022-06-11] MEDS: Normal Saline - Diluent 50 ML VIAL IJ (19:46)
[2022-06-11] MEDS: Omnipaque 350 MG/ML 100 ML BTL IJ (19:47)
--- NOTE | 2022-06-11 20:29 | DI.VRAD_ITS ---
PROCEDURE INFORMATION: Exam: CT Abdomen And Pelvis With Contrast Exam date and time: 06/11/2022 7:47 PM Age: 51 years old Clinical indication: Nausea and vomiting and other: Mid abdominal pain x 5 days; Additional info: Section repeated due to patient motion TECHNIQUE: Imaging protocol: Computed tomography of the abdomen and pelvis with contrast. Contrast material: OMNIPAQUE 350; Contrast volume: 100 ml; Contrast route: INTRAVENOUS (IV); COMPARISON: CT ABDOMEN PELVIS W 06/22/2020 5:06 PM FINDINGS: Liver: There is a 1.6 x 1.4 cm low-dense left hepatic lobe lesion on image 7, series 4, mildly increased from prior study, which demonstrates a region of peripheral globular enhancement, consistent with a benign hemangioma. There is a sub cm low-dense lesion within the right hepatic lobe which is too small to characterize but likely represents a benign cyst or biliary hamartoma. Gallbladder and bile ducts: Again noted is a focal segmental region of mild gallbladder wall thickening involving the fundus, as seen around axial images 28-29, series 4, stable since prior study, which may represent focal adenomyomatosis. No gallstones are identified. There is no evidence for acute gallbladder inflammation. Again noted is mild central intrahepatic biliary ductal dilatation without common bile duct dilatation. Pancreas: Normal. No ductal dilation. Spleen: Normal. No splenomegaly. Adrenal glands: Normal. No mass. Kidneys and ureters: There is a tiny sub cm low-dense right renal lesion which is too small to characterize but likely represents a benign cyst. No renal or ureteral stones are identified. There is no hydronephrosis or hydroureter. Stomach and bowel: There is no evidence of small or large bowel inflammation. There is no evidence for bowel obstruction. Appendix: No evidence of appendicitis. Intraperitoneal space: There is no evidence of free intraperitoneal fluid. There is no free intraperitoneal air. Vasculature: The aorta and iliac arteries demonstrate mild to moderate atherosclerotic calcification without aneurysm formation. Lymph nodes: Unremarkable. No enlarged lymph nodes. Urinary bladder: No bladder stones are identified. There may be mild diffuse bladder wall thickening, as on prior study, but the bladder is not well distended, limiting evaluation. Reproductive: Unremarkable as visualized. Bones/joints: There is multilevel mild spondylosis of the lower thoracic and lumbar spine. No acute fractures are identified. Soft tissues: Unremarkable. IMPRESSION: 1. No acute process within the abdomen or pelvis identified. 2. There may be mild diffuse bladder wall thickening, as on prior study, which can be seen with cystitis versus chronic bladder outlet obstruction. Recommend clinical correlation. 3. Small benign hepatic hemangioma. 4. Findings suggest focal adenomyomatosis of the gallbladder, without change since 06/22/2020. Follow-up right upper quadrant ultrasound in 1 year could be obtained to document continued stability. Dictated and Authenticated by: Michael Adams MD. Ordering:MG Ball MD
[2022-06-11] MEDS: Famotidine 20 MG/2 ML VIAL IVP (20:55)
[2022-06-11] MEDS: LORazepam 2 MG/ML VIAL 0.5 MG IVP (20:55)
[2022-06-11] MEDS: Lactated Ringers 1,000 ML 1000 ML IV (20:55)
[2022-06-11 21:45] LABS: Troponin I < 50 ng/L (<or=60)
--- NOTE | 2022-06-12 03:46 | NUR.NOTE ---
has been sleeping in rm 6. Nursing Note:
[2022-06-12 05:56] VITALS: BP 163/101; PULSE 85; RESP 20; TEMP 36.7; O2SAT 958
== END 2022-06-12 06:14 | disposition home or self-care (01) ==
PROVIDERS: Emergency Medicine; Emergency Provider Emergency Medicine; PCP Family Medicine
DX: R11.2 Nausea with vomiting, unspecified (principal); R10.30 Lower abdominal pain, unspecified; E80.7 Disorder of bilirubin metabolism, unspecified
CPT/HCPCS: 36415; 80053; 83690; 96361; 96374; 96375; 99285; 74177; 83605; 83735; 84484; 85025; 99284; J1170; J2060; J2405; J3490

== ENCOUNTER 2022-07-20 09:19 | Outpatient (CLI) | payer MEDICAID, SELFPAY ==
--- NOTE | 2022-07-20 11:17 | DI.RAD_ITS ---
Exam(s) XR FACIAL BONES LIMITED EXAM: XR FACIAL BONES LIMITED CLINICAL HISTORY: RT TMJ TENDERNESS, M26.69. TECHNIQUE: 2D digital imaging was performed. COMPARISON: No exams were available for comparison FINDINGS: Four views: No evidence of facial fractures nor fluid in the paranasal sinuses. Incidentally noted i s a bony excrescence off the outer aspect of the angle of the mandible on the right side. TM joints are not dislocated. No obvious abnormality at TM joints but these are not dedicated TM joint views. No osseous lesions. No radiopaque foreign body. IMPRESSION: As above. If clinically indicated dedicated TM J joint views can be performed DATA REPOSITORY: RADIATION DOSE DELIVERED:
== END 2022-07-20 09:39 ==
LOC: DI 09:20
PROVIDERS: PCP Family Medicine; Visit Provider Nurse Practitioner Family
DX: M26.69 Other specified disorders of temporomandibular joint (principal)
CPT/HCPCS: 70140

== ENCOUNTER 2022-08-11 00:34 | Outpatient (CLI) | payer MEDICAID, SELFPAY ==
--- NOTE | 2022-08-11 | DI.CT_ITS ---
Exam(s) CT FACIAL W EXAM: CT FACIAL W CLINICAL HISTORY: RT JAW MASS, R22.0,LT FACIAL SWELLING,. TECHNIQUE: Imaging Protocol: Axial computed tomography images with coronal and sagittal reformatted images were created and reviewed CONTRAST MATERIAL: Intravenous: Omnipaque 350 Contrast volume:100 mL COMPARISON: CT HEAD WITHOUT CONTRAST from 01/12/2009 CR XR FACIAL BONES LIMITED from 07/20/2022 FINDINGS: Facial Bones: There is a well-circumscribed lytic lesion in the angle of the mandible associated wit h the adjacent molar. It measures 3.5 AP by 3.0 transverse by 2.9 craniocaudad cm. It is hypodense and shows no enhancement. No solid component is identified. There is no cervical adenopathy. Sinuses and Mastoids: There is mild mucosal thickening in the ethmoid air cells bilaterally. The re maining visualized paranasal sinuses are clear as are the visualized mastoid air cells. Globes, extraocular muscles, optic nerves and retrobulbar fat: Normal. Upper aerodigestive tract: Normal. Mandible and bilateral temporomandibular joints: Please see the above discussion under facial bones. The temporomandibular joints are unremarkable. No other lytic lesions are seen. Soft tissues: Normal. Enhancement: No abnormal enhancement. IMPRESSION: Well-circumscribed 3.5 x 3 x 2.9 cm lytic lesion involving the angle of the mandible. There is an ad jacent molar. No solid component or cervical adenopathy or enhancement is seen. Primary diagnostic concern is for a dentigerous cyst. Differential considerations include odontogenic cysts such as a p eriapical cyst, periapical abscess, or non odontogenic causes including bone cysts, fibrous dysplasia or neoplasm. RADIATION DOSE DELIVERED: 666.53mGy.cm Total DLP DATA REPOSITORY: All CT scans at this facility are submitted to the National Radiology Data Registry (NRDR) Dose Index Registry (DIR) with the [employer] (ACR). RADIATION OPTIMIZATION: All CT scans at this facility use at least one of these dose optimization te chniques: automated exposure control; mA and/or kV adjustment per patient size (includes targeted exa ms where dose is matched to clinical indication); or iterative reconstruction.
[2022-08-11] MEDS: Omnipaque 350 MG/ML 100 ML BTL IJ (08:47)
[2022-08-11] MEDS: Normal Saline - Diluent 50 ML VIAL IJ (08:48)
[2022-08-11] MEDS: Normal Saline Flush 10 ML SYR IVP (08:48)
== END 2022-08-11 00:54 ==
LOC: DI 00:34
PROVIDERS: PCP Family Medicine; Visit Provider Family Medicine
DX: R22.0 Localized swelling, mass and lump, head (principal); K09.0 Developmental odontogenic cysts; M27.49 Other cysts of jaw
CPT/HCPCS: 70487; J3490